=== PATIENT | female | born 1980 | race American Indian/Alaskan Native ===

== ENCOUNTER 2017-07-21 16:09 | Inpatient (IN) | payer SELFPAY ==
[2017-07-21 16:54] LABS: Basophils # (Auto) 0.1 K/mm3 (0.0-0.1); Eosinophils % (Auto) 0.1 % (0.0-4.3); Lymphocytes # (Auto) 2.8 K/mm3 (1.2-5.4); Lymphocytes % (Auto) 19.4 % (13.4-35.0); Mean Corpuscular HGB Conc 30 % (30-34); Monocytes # (Auto) 1.9 K/mm3 (0.0-0.8); Platelet Count 470 K/mm3 (140-440); Red Blood Count 5.49 M/mm3 (3.65-5.03)
[2017-07-21 17:01] LABS: Hematocrit 37.6 % (30.3-42.9); Hemoglobin 11.4 gm/dl (10.1-14.3)
[2017-07-21 17:02] LABS: Mean Corpuscular Hemoglobin 21 pg (28-32); Mean Corpuscular Volume 68 fl (79-97)
[2017-07-21 17:07] LABS: Calcium 9.5 mg/dL (8.4-10.2)
[2017-07-21] MEDS ORDERED: NACL 0.9% 1000 ML 1,000 ML IV ONE ×2 (18:29→20:32)
[2017-07-21] MEDS ORDERED: ATIVAN IV ONE (18:30)
--- NOTE | 2017-07-21 18:31 | Emergency Department Report ---
ED General Adult HPI - General Chief complaint: Psych Stated complaint: ANXIETY Time Seen by Provider: 07/21/17 18:14 Source: patient Mode of arrival: Wheelchair Limitations: No Limitations - History of Present Illness Initial comments: Patient states weak all over and dizzy spells for a couple days felt faint earlier today no seizure activity here for evaluation of nausea vomiting no black or bloody stool no hematemesis, does admit to frequent EtOH family states heavy, no history of withdrawal, does have a tremor, weak all over nausea vomiting, history of hypertension diabetes, no fever no headache no stiff neck chills, no shortness of breath no cough no chest pain, here for evaluation of nausea vomiting dizziness and generalized weakness and thinks she might have a panic attack earlier today no SI no HI alert and oriented 3 toxic in no acute distress -: days(s), This morning Radiation: non-radiation Consistency: intermittent Associated Symptoms: denies other symptoms, malaise, weakness. denies: confusion, chest pain, cough, diaphoresis, fever/chills, seizure - Related Data Home Medications Medication Instructions Recorded Confirmed Last Taken Insulin Glargine [Lantus] 20 unit SUB-Q QHS 02/19/16 02/19/16 02/16/16 20:00 Potassium Chloride 10 meq PO QDAY 02/19/16 02/19/16 02/16/16 09:00 Promethazine [Phenergan TAB] 25 mg PO Q6HR PRN 02/19/16 02/19/16 02/17/16 10:00 Previous Rx's Medication Instructions Recorded Last Taken Type Lisinopril [Zestril TAB] 10 mg PO QDAY #30 tablet 04/27/14 02/17/16 10:00 Rx Ondansetron [Zofran ODT TAB] 8 mg PO Q8HR #20 tab.rapdis 02/19/16 Unknown Rx Promethazine [Phenergan] 25 mg WA Q6HR PRN #10 supp.rect 02/19/16 Unknown Rx Sulfamethoxazole/Trimethoprim 1 each PO BID #6 tablet 02/19/16 Unknown Rx [Bactrim DS TAB] Allergies Allergy/AdvReac Type Severity Reaction Status Date / Time No Known Allergies Allergy Verified 02/19/16 08:35 ED Review of Systems ROS: Stated complaint: ANXIETY Other details as noted in HPI Comment: All other systems reviewed and negative Constitutional: malaise, weakness. denies: diaphoresis, fever Eyes: denies: eye discharge, vision change ENT: denies: dental pain, hearing loss, epistaxis Respiratory: denies: shortness of breath, SOB with exertion, SOB at rest, stridor Cardiovascular: syncope. denies: chest pain, palpitations, dyspnea on exertion , orthopnea, edema, paroxysmal nocturnal dyspnea Gastrointestinal: nausea. denies: abdominal pain, diarrhea, constipation, hematemesis, melena, hematochezia Genitourinary: denies: dysuria, hematuria, discharge Neurological: weakness, numbness, paresthesias. denies: headache ED Past Medical Hx - Past Medical History Hx Hypertension: Yes Hx Diabetes: Yes - Surgical History Past Surgical History?: No - Social History Smoking Status: Never Smoker Substance Use Type: None - Medications Home Medications: Home Medications Medication Instructions Recorded Confirmed Last Taken Type Lisinopril [Zestril TAB] 10 mg PO QDAY #30 tablet 04/27/14 02/19/16 02/17/16 10: 00 Rx Insulin Glargine [Lantus] 20 unit SUB-Q QHS 02/19/16 02/19/16 02/16/16 20:00 History Ondansetron [Zofran ODT TAB] 8 mg PO Q8HR #20 tab.rapdis 02/19/16 Unknown Rx Potassium Chloride 10 meq PO QDAY 02/19/16 02/19/16 02/16/16 09:00 History Promethazine [Phenergan TAB] 25 mg PO Q6HR PRN 02/19/16 02/19/16 02/17/16 10:00 History Promethazine [Phenergan] 25 mg WA Q6HR PRN #10 supp.rect 02/19/16 Unknown Rx Sulfamethoxazole/Trimethoprim 1 each PO BID #6 tablet 02/19/16 Unknown Rx [Bactrim DS TAB] ED Physical Exam - General Limitations: No Limitations General appearance: alert, anxious, other (tremor) - Head Head exam: Present: atraumatic, normocephalic - Eye Eye exam: Present: PERRL, EOMI - ENT ENT exam: Present: normal exam, normal orophraynx - Neck Neck exam: Present: normal inspection. Absent: tenderness, meningismus - Respiratory Respiratory exam: Present: normal lung sounds bilaterally. Absent: respiratory distress, wheezes, rales, rhonchi, stridor, accessory muscle use, decreased breath sounds, prolonged expiratory - Cardiovascular Cardiovascular Exam: Present: regular rate, normal rhythm, normal heart sounds. Absent: rubs, gallop - GI/Abdominal GI/Abdominal exam: Present: soft. Absent: distended, tenderness, guarding, rebound, rigid, mass, pulsatile mass - Extremities Exam Extremities exam: Present: normal inspection. Absent: pedal edema, joint swelling, calf tenderness - Back Exam Back exam: Present: normal inspection. Absent: tenderness, CVA tenderness (R), CVA tenderness (L), paraspinal tenderness, vertebral tenderness - Neurological Exam Neurological exam: Present: alert, oriented X3, CN II-XII intact, other (normal cerebellar findings). Absent: motor sensory deficit - Psychiatric Psychiatric exam: Present: anxious - Skin Skin exam: Present: other (poor skin turgor delayed capillary refill) ED Course Vital Signs 07/21/17 07/21/17 07/21/17 16:21 18:08 18:09 Temperature 98.7 F 98.1 F Pulse Rate 71 106 H Respiratory 16 19 18 Rate Blood Pressure 122/92 Blood Pressure 131/82 [Right] O2 Sat by Pulse 95 98 Oximetry 07/21/17 18:16 Temperature Pulse Rate 106 H Respiratory 16 Rate Blood Pressure 142/68 Blood Pressure [Right] O2 Sat by Pulse 98 Oximetry ED Medical Decision Making - Lab Data Result diagrams: 07/21/17 16:37 07/21/17 16:37 - EKG Data -: EKG Interpreted by Mn EKG shows normal: sinus rhythm - EKG Data Interpretation: other (ischemic change none acutge) - Radiology Data Radiology results: report reviewed - Medical Decision Making Patient with hyperglycemia anion gap is 17 with near syncope and possible ethanol withdrawal. She will need to be admitted for further evaluation of dizzy spells with near syncope she denies black or bloody stools she does have elevated anion gap with dehydration sodium 125 and elevated glucose case was discussed with hospitalist for further evaluation and possible ethanol withdrawal Critical care attestation.: If time is entered above; I have spent that time in minutes in the direct care of this critically ill patient, excluding procedure time. ED Disposition Clinical Impression: Volume depletion, Near syncope, Postural dizziness with near syncope Disposition: DC- OP ADMIT IP TO THIS HOSP Is pt being admited?: Yes Condition: Stable Referrals: DAVID LEE MD [Primary Care Provider] - 3-5 Days Time of Disposition: 22:17
[2017-07-21 18:32] LABS: Alanine Aminotransferase 21 units/L (7-56); Albumin 4.6 g/dL (3.9-5)
[2017-07-21 18:48] LABS: Bilirubin,Direct < 0.2 mg/dL (0-0.2)
--- NOTE | 2017-07-21 18:52 | XRay Report ---
FINAL REPORT PROCEDURE: XR CHEST ROUTINE 2V TECHNIQUE: PA and lateral chest radiographs were obtained. CPT 00729 HISTORY: weak COMPARISON: No prior studies are available for comparison. FINDINGS: Heart: Normal. Mediastinum/Vessels: Normal. Lungs/Pleural space: Normal. Bony thorax: No acute osseous abnormality. Other: IMPRESSION: Normal examination.
[2017-07-21 18:56] LABS: INR 0.94 (0.87-1.13); Partial Thromboplastin Time 24.3 Sec. (24.2-36.6)
[2017-07-21] MEDS ORDERED: VITAMIN B-1 100 MG in NACL 0.9% 50 ML IV ONE (19:00)
[2017-07-21] MEDS ORDERED: MAGNESIUM SULFATE 1 GM in NACL 0.9% 50 ML IV ONE (19:30)
--- NOTE | 2017-07-21 19:51 | Cat Scan Report ---
FINAL REPORT PROCEDURE: CT HEAD/BRAIN WO CON TECHNIQUE: Computerized tomography of the head was performed without contrast material. HISTORY: ams COMPARISON: No prior studies are available for comparison. FINDINGS: Skull and scalp: Normal. Paranasal sinuses: Mild opacification of the ethmoid sinuses. Ventricles and subarachnoid spaces: Normal. Cerebrum: No evidence of hemorrhage, acute infarction or mass . Cerebellum and brainstem: No evidence of hemorrhage, acute infarction or mass. Vasculature: Normal. Comments: None. IMPRESSION: There is no evidence of an acute intracranial process.
[2017-07-21] MEDS ORDERED: K-DUR PO ONE (20:33)
[2017-07-21] MEDS ORDERED: SODIUM CHLORIDE FLUSH SYRINGE 10 ML IV PRN (22:55)
[2017-07-21] MEDS ORDERED: D50W (25GM) Syringe IV PRN (22:55)
[2017-07-21] MEDS ORDERED: REGLAN IV PRN (22:55)
[2017-07-21] MEDS ORDERED: ZOFRAN IV PRN (22:55)
[2017-07-21] MEDS ORDERED: TYLENOL PO PRN (22:55)
[2017-07-21] MEDS ORDERED: MORPHINE IV PRN (22:55)
[2017-07-21] MEDS ORDERED: ROCEPHIN/NS 1 GM/50 ML 1 GM/50 ML BAG IV SCH (23:00)
--- NOTE | 2017-07-21 23:00 | History and Physical Report ---
History of Present Illness Date of examination: 07/21/17 History of present illness: 37-year-old man with a history of hypertension, diabetes, [facility] emergency room complains of nausea vomiting in multiple times over the last 10 days. She states she has not had anything to eat. She states she felt weak and today she almost passed out. States she is compliant with taking her medication for diabetes. On her way from work today, she states she had a panic attack Review of systems Constitutional: no weight loss, chills Ears, eyes, nose, mouth and throat: no nasal congestion, no nasal discharge, no sinus pressure, no vision change, no red eye. Neck: No neck pain or rigidity. Cardiovascular: no chest pain, palpitations Respiratory: No cough, shortness of breath Gastrointestinal: no abdominal pain, hematochezia Genitourinary : no dysuria, frequency , no hematuria Musculoskeletal: no joint swelling or muscle ache Integumentary: no rash, no pruritis Neurological: no parathesias, no numbness, no focal weakness Endocrine: no cold or heat intolerance, no polyuria or polydipsia Hematologic/Lymphatic: no easy bruising, no easy bleeding, no gland swelling Allergic/Immunologic: no urticaria, no angioedema. PAST MEDICAL HISTORY:hypertension, diabetes PAST SURGICAL HISTORY: None SOCIAL HISTORY: Denies alcohol, tobacco, drugs FAMILY HISTORY: Hypertension, diabetes Medications and Allergies Allergies Allergy/AdvReac Type Severity Reaction Status Date / Time No Known Allergies Allergy Verified 02/19/16 08:35 Home Medications Medication Instructions Recorded Confirmed Last Taken Type Lisinopril [Zestril TAB] 10 mg PO QDAY #30 tablet 04/27/14 02/19/16 02/17/16 10: 00 Rx Insulin Glargine [Lantus] 20 unit SUB-Q QHS 02/19/16 02/19/16 02/16/16 20:00 History Ondansetron [Zofran ODT TAB] 8 mg PO Q8HR #20 tab.rapdis 02/19/16 Unknown Rx Potassium Chloride 10 meq PO QDAY 02/19/16 02/19/16 02/16/16 09:00 History Promethazine [Phenergan TAB] 25 mg PO Q6HR PRN 02/19/16 02/19/16 02/17/16 10:00 History Promethazine [Phenergan] 25 mg NM Q6HR PRN #10 supp.rect 02/19/16 Unknown Rx Sulfamethoxazole/Trimethoprim 1 each PO BID #6 tablet 02/19/16 Unknown Rx [Bactrim DS TAB] Exam - Physical Exam Narrative exam: Gen. appearance: Patient lying in bed, no apparent distress HEENT: Normocephalic, atraumatic, pupils equally round and reactive to light, extraocular movement intact, and no sclericterus,. No JVD or thyromegaly or nodule,neck supple, no carotid bruit ,mucous membranes moist, no exudate or erythema Heart: S1, S2, regular rate and rhythm Lungs: Clear to auscultation bilaterally, breathing comfortable Abdomen: Positive bowel sounds, nontender, nondistended, no organomegaly Extremity: No edema, cyanosis, clubbing Skin: No rash, nodules, warm, dry Neuro: Oriented 3, cranial nerves II-12 intact, speech is fluent, motor and sensory intact - Constitutional Vitals: Temp Pulse Resp BP Pulse Ox 98.1 F 106 H 16 142/68 98 07/21/17 18:09 07/21/17 18:16 07/21/17 18:16 07/21/17 18:16 07/21/17 18:16 Results - Labs CBC & Chem 7: 07/21/17 16:37 07/21/17 16:37 Labs: Abnormal lab results 07/21/17 07/21/17 07/21/17 Range/Units 16:37 16:37 16:37 WBC (4.5-11.0) K/mm3 RBC (3.65-5.03) M/mm3 MCV (79-97) fl MCH (28-32) pg RDW (13.2-15.2) % Plt Count (140-440) K/mm3 [place] % (Auto) (0.0-7.3) % [place] # (0.0-0.8) K/mm3 Seg Neutrophils # (1.8-7.7) K/mm3 Sodium 125 L (137-145) mmol/L Potassium 3.3 L (3.6-5.0) mmol/L Chloride 74.6 L (98-107) mmol/L Carbon Dioxide 33 H (22-30) mmol/L BUN 25 H (7-17) mg/dL Creatinine 1.4 H (0.7-1.2) mg/dL Glucose 222 H (65-100) mg/dL Total Creatine Kinase (30-135) units/L Total Protein (6.3-8.2) g/dL Salicylates < 0.3 L (2.8-20.0) mg/dL Acetaminophen < 5.0 L (10.0-30.0) ug/mL 07/21/17 07/21/17 07/21/17 Range/Units 16:37 16:37 18:30 WBC 14.4 H (4.5-11.0) K/mm3 RBC 5.49 H (3.65-5.03) M/mm3 MCV 68 L (79-97) fl MCH 21 L (28-32) pg RDW 17.0 H (13.2-15.2) % Plt Count 470 H (140-440) K/mm3 [place] % (Auto) 13.0 H (0.0-7.3) % [place] # 1.9 H (0.0-0.8) K/mm3 Seg Neutrophils # 9.5 H (1.8-7.7) K/mm3 Sodium (137-145) mmol/L Potassium (3.6-5.0) mmol/L Chloride (98-107) mmol/L Carbon Dioxide (22-30) mmol/L BUN (7-17) mg/dL Creatinine (0.7-1.2) mg/dL Glucose (65-100) mg/dL Total Creatine Kinase 147 H (30-135) units/L Total Protein 8.4 H (6.3-8.2) g/dL Salicylates (2.8-20.0) mg/dL Acetaminophen (10.0-30.0) ug/mL - Imaging and Cardiology Chest x-ray: report reviewed CT Scan - head: report reviewed Assessment and Plan Assessment Acute renal failure Intractable nausea vomiting, may be related to gastroparesis Hyponatremia Near syncope secondasry to dehydration Leukocytosis, rule out infection Hypertension Diabetes type 2 Plan Admit to medicine Start IV fluid, monitor kidney function, hold lisinopril Start Antiemetics, cardiac enzymes, check urinalysis Give a dose of IV antibiotic, check fingersticks initiate insulin sliding scale DVT prophylaxis
[2017-07-21 23:23] LABS: Bacteria,Urine 3+ /HPF (Negative); Bilirubin,Urine NEG (Negative); Blood,Urine MOD (Negative); Color,Urine Yellow (Yellow); Mucus,Urine FEW /HPF; Urobilinogen,Urine < 2.0 mg/dL (<2.0)
[2017-07-21 23:44] LABS: Amphetamine Screen,Urine PRESUMPTIVE NEGATIVE; Benzodiazepines Screen,Urine PRESUMPTIVE NEGATIVE; Cannabinoid Screen,Urine PRESUMPTIVE NEGATIVE; Cocaine Screen,Urine PRESUMPTIVE NEGATIVE; Methadone Screen,Urine PRESUMPTIVE NEGATIVE; Opiate Screen,Urine PRESUMPTIVE NEGATIVE
[2017-07-21 23:48] LABS: Creatine Kinase MB 4.9 ng/mL (0.0-4.0)
[2017-07-22] MEDS ORDERED: NACL 0.9% 1000 ML 1,000 ML ONE (00:33)
[2017-07-22] MEDS: NACL 0.9% 1000 ML 1,000 ML IV SCH ×2 (01:41→22:00)
[2017-07-22] MEDS: cefTRIAXone 1 GM in NACL 0.9% 20 ML IV SCH ×2 (01:41→09:39)
[2017-07-22] MEDS: HumaLOG SUB-Q SCH ×4 (09:38→22:00)
[2017-07-22] MEDS: LOVENOX SUB-Q SCH (09:39)
[2017-07-22] MEDS: SODIUM CHLORIDE FLUSH SYRINGE 10 ML IV SCH ×2 (10:07→22:00)
[2017-07-22 13:17] LABS: Basophils # (Auto) 0.1 K/mm3 (0.0-0.1); Basophils % (Auto) 0.4 % (0.0-1.8); Eosinophils % (Auto) 0.4 % (0.0-4.3); Hemoglobin 10.3 gm/dl (10.1-14.3); Lymphocytes # (Auto) 2.8 K/mm3 (1.2-5.4); Lymphocytes % (Auto) 23.4 % (13.4-35.0); Mean Corpuscular HGB Conc 31 % (30-34); Monocytes # (Auto) 1.6 K/mm3 (0.0-0.8); Monocytes % (Auto) 13.1 % (0.0-7.3); Platelet Count 406 K/mm3 (140-440); Red Blood Count 4.83 M/mm3 (3.65-5.03)
[2017-07-22 13:24] LABS: BUN/Creatinine Ratio 18; Blood Urea Nitrogen 14 mg/dL (7-17); Calcium 8.6 mg/dL (8.4-10.2); Hemolysis Index 9
[2017-07-22 13:27] LABS: Mean Corpuscular Hemoglobin 21 pg (28-32); Mean Corpuscular Volume 68 fl (79-97)
[2017-07-22 13:36] LABS: Bacteria,Urine 1+ /HPF (Negative); Bilirubin,Urine NEG (Negative); Blood,Urine MOD (Negative); Color,Urine Yellow (Yellow); Protein,Urine <15 mg/dL mg/dL (Negative); Urobilinogen,Urine < 2.0 mg/dL (<2.0)
[2017-07-22 13:48] LABS: Creatine Kinase MB 4.4 ng/mL (0.0-4.0)
--- NOTE | 2017-07-22 15:14 | Progress Note ---
Assessment and Plan - Patient Problems (1) Gastroparesis Current Visit: Yes Status: Acute Plan to address problem: She most likely would gastroparesis. We will need to follow up outpatient with endocrinology. Patient does not have one on explained to her the importance of finding a primary care physician and endocrinology to better help both diagnosis. Appears to be secondary to uncontrolled diabetes. Patient is also had diabetes for approximately 10 years or greater. We'll consider treating with Zofran versus short trial of Reglan. Reglan should probably be done at outpatient physician office. (2) Postural dizziness with near syncope Current Visit: Yes Status: Acute Plan to address problem: Secondary to dehydration patient nausea vomiting for some time has been treated here before for this. Seems to be secondary to gastroparesis. Patient has been hydrated stable now able to eat breakfast and lunch. (3) Volume depletion Current Visit: Yes Status: Acute Plan to address problem: We'll continue IV volume hydration. Would discharge home in a.m. (4) Hypokalemia Current Visit: No Status: Acute Plan to address problem: Impaired to GI loss with the nausea vomiting diarrhea or replace as indicated. Replace by mouth potassium today. History Interval history: He should doing much better seem to respond to anti-anxiety benzodiazepine and meds for nausea antiemetic medications. After long discussion with history appears patient may have gastroparesis. Secondary to diabetes. Has been somewhat noncompliant with diabetes unsure of a hemoglobin A1c. Accu-Chek this morning 276 Hospitalist Physical - Constitutional Vitals: Temp Pulse Resp BP Pulse Ox 98.8 F 90 18 130/85 99 07/22/17 08:39 07/22/17 08:39 07/22/17 08:39 07/22/17 08:39 07/22/17 08:39 General appearance: Present: no acute distress - EENT Eyes: Present: PERRL, EOM intact. Absent: scleral icterus, conjunctival injection ENT: hearing intact, clear oral mucosa, hearing decreased, no oropharyngeal erythema, no poor dentition, no thrush - Neck Neck: Present: supple, normal ROM. Absent: enlarged thyroid, masses or JVD - Respiratory Respiratory: bilateral: CTA - Cardiovascular Rhythm: regular Heart Sounds: Present: S1 & S2 - Extremities Extremities: no ischemia, pulses intact, pulses symmetrical, normal color Peripheral Pulses: within normal limits - Abdominal General gastrointestinal: soft, non-tender, non-distended, normal bowel sounds - Integumentary Integumentary: Present: warm - Psychiatric Psychiatric: appropriate mood/affect, intact judgment & insight - Neurologic Neurologic: CNII-XII intact Results - Labs CBC & Chem 7: 07/22/17 11:24 07/22/17 11:24 Labs: Laboratory Last Values WBC 12.1 K/mm3 (4.5-11.0) H 07/22/17 11:24 RBC 4.83 M/mm3 (3.65-5.03) 07/22/17 11:24 Hgb 10.3 gm/dl (10.1-14.3) 07/22/17 11:24 Hct 33.0 % (30.3-42.9) 07/22/17 11:24 MCV 68 fl (79-97) L 07/22/17 11:24 MCH 21 pg (28-32) L 07/22/17 11:24 MCHC 31 % (30-34) 07/22/17 11:24 RDW 17.0 % (13.2-15.2) H 07/22/17 11:24 Plt Count 406 K/mm3 (140-440) 07/22/17 11:24 Lymph % (Auto) 23.4 % (13.4-35.0) 07/22/17 11:24 [place] % (Auto) 13.1 % (0.0-7.3) H 07/22/17 11:24 Eos % (Auto) 0.4 % (0.0-4.3) 07/22/17 11:24 Baso % (Auto) 0.4 % (0.0-1.8) 07/22/17 11:24 Lymph # 2.8 K/mm3 (1.2-5.4) 07/22/17 11:24 [place] # 1.6 K/mm3 (0.0-0.8) H 07/22/17 11:24 Eos # 0.0 K/mm3 (0.0-0.4) 07/22/17 11:24 Baso # 0.1 K/mm3 (0.0-0.1) 07/22/17 11:24 Seg Neutrophils % 62.7 % (40.0-70.0) 07/22/17 11:24 Seg Neutrophils # 7.6 K/mm3 (1.8-7.7) 07/22/17 11:24 PT 13.0 Sec. (12.2-14.9) 07/21/17 18:37 INR 0.94 (0.87-1.13) 07/21/17 18:37 APTT 24.3 Sec. (24.2-36.6) 07/21/17 18:37 D-Dimer 150.15 ng/mlDDU (0-234) 07/21/17 23:06 Sodium 130 mmol/L (137-145) L 07/22/17 11:24 Potassium 3.0 mmol/L (3.6-5.0) L 07/22/17 11:24 Chloride 85.3 mmol/L (98-107) L 07/22/17 11:24 Carbon Dioxide 30 mmol/L (22-30) 07/22/17 11:24 Anion Gap 18 mmol/L 07/22/17 11:24 BUN 14 mg/dL (7-17) 07/22/17 11:24 Creatinine 0.8 mg/dL (0.7-1.2) 07/22/17 11:24 Estimated GFR > 60 ml/min 07/22/17 11:24 BUN/Creatinine Ratio 18 % 07/22/17 11:24 Glucose 160 mg/dL (65-100) H 07/22/17 11:24 POC Glucose 196 (70-105) H 07/22/17 07:32 Calcium 8.6 mg/dL (8.4-10.2) 07/22/17 11:24 Total Bilirubin 0.70 mg/dL (0.1-1.2) 07/21/17 16:37 Direct Bilirubin < 0.2 mg/dL (0-0.2) 07/21/17 16:37 Indirect Bilirubin 0.5 mg/dL 07/21/17 16:37 AST 23 units/L (5-40) 07/21/17 16:37 ALT 21 units/L (7-56) 07/21/17 16:37 Alkaline Phosphatase 77 units/L (35-129) 07/21/17 16:37 Total Creatine Kinase 144 units/L (30-135) H 07/22/17 11:24 CK-MB (CK-2) 4.4 ng/mL (0.0-4.0) H 07/22/17 11:24 CK-MB (CK-2) Rel Index 3.0 (0-4) 07/22/17 11:24 Troponin T < 0.010 ng/mL (0.00-0.029) 07/22/17 11:24 Total Protein 8.4 g/dL (6.3-8.2) H 07/21/17 16:37 Albumin 4.6 g/dL (3.9-5) 07/21/17 16:37 Albumin/Globulin Ratio 1.2 % 07/21/17 16:37 Urine Color Yellow (Yellow) 07/22/17 13:00 Urine Turbidity Clear (Clear) 07/22/17 13:00 Urine pH 7.0 (5.0-7.0) 07/22/17 13:00 Ur Specific [place] 1.009 (1.003-1.030) 07/22/17 13:00 Urine Protein <15 mg/dl mg/dL (Negative) 07/22/17 13:00 Urine Glucose (UA) Neg mg/dL (Negative) 07/22/17 13:00 Urine Ketones Neg mg/dL (Negative) 07/22/17 13:00 Urine Blood Mod (Negative) 07/22/17 13:00 Urine Nitrite Neg (Negative) 07/22/17 13:00 Urine Bilirubin Neg (Negative) 07/22/17 13:00 Urine Urobilinogen < 2.0 mg/dL (<2.0) 07/22/17 13:00 Ur Leukocyte Esterase Tr (Negative) 07/22/17 13:00 Urine WBC (Auto) 3.0 /HPF (0.0-6.0) 07/22/17 13:00 Urine RBC (Auto) 2.0 /HPF (0.0-6.0) 07/22/17 13:00 U Epithel Cells (Auto) 6.0 /HPF (0-13.0) 07/22/17 13:00 Urine Bacteria (Auto) 1+ /HPF (Negative) 07/22/17 13:00 Urine Mucus Few /HPF 07/21/17 23:08 Salicylates < 0.3 mg/dL (2.8-20.0) L 07/21/17 16:37 Urine Opiates Screen Presumptive negative 07/21/17 23:08 Urine Methadone Screen Presumptive negative 07/21/17 23:08 Acetaminophen < 5.0 ug/mL (10.0-30.0) L 07/21/17 16:37 Ur Barbiturates Screen Presumptive negative 07/21/17 23:08 Ur Phencyclidine Scrn Presumptive negative 07/21/17 23:08 Ur Amphetamines Screen Presumptive negative 07/21/17 23:08 U Benzodiazepines Scrn Presumptive negative 07/21/17 23:08 Urine Cocaine Screen Presumptive negative 07/21/17 23:08 U Marijuana (THC) Screen Presumptive negative 07/21/17 23:08 Drugs of Abuse Note Disclamer 07/21/17 23:08 Plasma/Serum Alcohol < 0.01 % (0-0.07) 07/21/17 16:37
[2017-07-22] MEDS ORDERED: K-DUR PO ONE ×2 (15:15→18:00)
[2017-07-23 07:09] LABS: Basophils % (Auto) 0.6 % (0.0-1.8); Eosinophils # (Auto) 0.1 K/mm3 (0.0-0.4); Eosinophils % (Auto) 1.6 % (0.0-4.3); Hematocrit 28.1 % (30.3-42.9); Hemoglobin 8.9 gm/dl (10.1-14.3); Lymphocytes # (Auto) 1.8 K/mm3 (1.2-5.4); Lymphocytes % (Auto) 28.5 % (13.4-35.0); Mean Corpuscular HGB Conc 32 % (30-34); Monocytes % (Auto) 15.4 % (0.0-7.3); Platelet Count 306 K/mm3 (140-440); Red Blood Count 4.02 M/mm3 (3.65-5.03); Red Cell Distribution Width 17.6 % (13.2-15.2)
[2017-07-23 07:11] LABS: Mean Corpuscular Hemoglobin 22 pg (28-32); Mean Corpuscular Volume 70 fl (79-97)
[2017-07-23 07:27] LABS: BUN/Creatinine Ratio 15; Blood Urea Nitrogen 12 mg/dL (7-17); Hemolysis Index 1
[2017-07-23] MEDS: HumaLOG SUB-Q SCH (08:30)
[2017-07-23] MEDS: LOVENOX SUB-Q SCH (10:30)
[2017-07-23] MEDS ORDERED: K-DUR PO NR (10:30)
[2017-07-23] MEDS: cefTRIAXone 1 GM in NACL 0.9% 20 ML IV SCH (10:30)
--- NOTE | 2017-07-23 12:02 | Discharge Summary ---
Providers - Providers Date of Admission: 07/21/17 22:55 Attending physician: CHADWICK SZYMANSKI MD Primary care physician: DAVID LEE Hospitalization Reason for admission: gastroparesis Condition: Stable Hospital course: 37-year-old man with a history of hypertension, diabetes, [facility] emergency room complains of nausea vomiting in multiple times over the last 10 days. She states she has not had anything to eat. She states she felt weak and today she almost passed out. States she is compliant with taking her medication for diabetes. On her way from work today, she states she had a panic attack. While in the hospital was determined that this could be gastroparesis secondary to poorly controlled diabetes mellitus. The patient improved with initiation of Zofran on initial trial of Reglan. Recommendation was made to follow up outpatient for Reglan initiation of studies. Also follow-up with clinical psychologist private practice. Patient received extensive advice counseling about compliance with diabetic medication she verbalized understanding. Her postural dizziness resolved. She is clinically stable at this time for discharge she was noted to have anemia this was discussed with her although she denied any melanotic stools she did report that she just completed her menstrual cycle I did recommend iron pills also reevaluation by GI outpatient if anemia persists (1) Gastroparesis (2) Postural dizziness with near syncope (3) Volume depletion (4) Hypokalemia (5) Diabetes Mellitus with hyperglycemia Disposition: DC-01 TO HOME OR SELFCARE Time spent for discharge: 35 mins Core Measure Documentation - Palliative Care Palliative Care/ Comfort Measures: Not Applicable - Core Measures Any of the following diagnoses?: none - VTE Discharge Requirements Deep Vein Thrombosis/Pulmonary Embolism Present on Admission: No Exam - Constitutional Vitals: Temp Pulse Resp BP Pulse Ox 97.9 F 85 18 129/86 100 07/23/17 09:12 07/23/17 09:12 07/23/17 09:12 07/23/17 09:12 07/23/17 09:12 General appearance: Present: no acute distress, well-nourished - EENT Eyes: Present: PERRL, EOM intact. Absent: scleral icterus, conjunctival injection ENT: clear oral mucosa - Neck Neck: Present: supple, normal ROM - Respiratory Respiratory effort: normal Respiratory: bilateral: CTA - Cardiovascular Rhythm: regular Heart Sounds: Present: S1 & S2. Absent: systolic murmur, diastolic murmur - Extremities Extremities: no ischemia, pulses intact, pulses symmetrical, No edema, normal temperature, normal color, Full ROM Peripheral Pulses: within normal limits - Abdominal General gastrointestinal: Present: soft, non-tender, non-distended, normal bowel sounds - Integumentary Integumentary: Present: clear, warm, dry - Musculoskeletal Musculoskeletal: strength equal bilaterally - Psychiatric Psychiatric: appropriate mood/affect, intact judgment & insight, memory intact, cooperative - Neurologic Neurologic: CNII-XII intact, moves all extremities - Allied Health Allied health notes reviewed: nursing Plan Activity: advance as tolerated, fall precautions Diet: diabetic Special Instructions: smoking cessation Follow up with: DAVID LEE MD [Primary Care Provider] - 3-5 Days MELYSSA MUNOZ MD [Staff Physician] - 7 Days Forms: Work/School Release Form Prescriptions: Ferrous Sulfate [Iron] 325 mg PO TID #30 tablet Lisinopril [Zestril TAB] 10 mg PO QDAY #30 tablet Omeprazole 20 mg PO DAILY #30 capsule.
[2017-07-23 13:00] VITALS: BP 127/81
== END 2017-07-23 16:34 | disposition home or self-care (01) | DRG 74 ==
LOC: ED 16:09 → 4A 22:55
PROVIDERS: ADMIT Internal Medicine; ATTEND Internal Medicine
DX: E11.43 Type 2 diabetes mellitus with diabetic autonomic (poly)neuropathy (principal); N17.9 Acute kidney failure, unspecified; E87.1 Hypo-osmolality and hyponatremia; R55 Syncope and collapse; E86.9 Volume depletion, unspecified; I10 Essential (primary) hypertension; E86.0 Dehydration; D72.829 Elevated white blood cell count, unspecified; E87.6 Hypokalemia; K31.84 Gastroparesis; E11.65 Type 2 diabetes mellitus with hyperglycemia; Z79.4 Long term (current) use of insulin; Z79.899 Other long term (current) drug therapy; Z82.49 Family history of ischemic heart disease and other diseases of the circulatory system; Z83.3 Family history of diabetes mellitus
CPT/HCPCS: 36415; 70450; 71046; 80048; 80074; 80307; 80320; 81001; 82550; 82553; 82962; 84484; 85025; 85379; 85610; 85730; 93005; 93010; 96361; 96365; 96368; 96375; G0480; J0696; J1650; J1815; J2060; J3411; J3475; J7030

== ENCOUNTER 2017-08-29 08:32 | Emergency (ER) | payer SELFPAY ==
[2017-08-29 09:46] LABS: Basophils # (Auto) 0.1 K/mm3 (0.0-0.1); Hematocrit 36.1 % (30.3-42.9); Hemoglobin 11.7 gm/dl (10.1-14.3); Lymphocytes # (Auto) 1.9 K/mm3 (1.2-5.4); Lymphocytes % (Auto) 15.1 % (13.4-35.0); Mean Corpuscular HGB Conc 32 % (30-34); Monocytes # (Auto) 1.2 K/mm3 (0.0-0.8); Monocytes % (Auto) 9.7 % (0.0-7.3); Platelet Count 546 K/mm3 (140-440); Red Blood Count 5.35 M/mm3 (3.65-5.03); Red Cell Distribution Width 17.8 % (13.2-15.2)
[2017-08-29 09:49] LABS: Mean Corpuscular Hemoglobin 22 pg (28-32); Mean Corpuscular Volume 67 fl (79-97)
[2017-08-29 09:49] LABS: BUN/Creatinine Ratio 19; Blood Urea Nitrogen 21 mg/dL (7-17); Calcium 9.7 mg/dL (8.4-10.2); Hemolysis Index 3
[2017-08-29] MEDS ORDERED: ZOFRAN IV ONE (10:32)
[2017-08-29] MEDS ORDERED: NACL 0.9% 1000 ML 1,000 ML IV ONE (10:32)
--- NOTE | 2017-08-29 10:37 | Emergency Department Report ---
ED General Adult HPI - General Chief complaint: Chest Pain Stated complaint: CP/SOB/VOMITING Time Seen by Provider: 08/29/17 10:28 Source: patient Mode of arrival: Ambulatory Limitations: No Limitations - History of Present Illness Initial comments: Patient is 37 years old female history of diabetes and hypertension. Patient presented to the ER complaining all chest pain central, tightness associated with shortness of breath, nausea and vomiting. Patient stated that she is unable to keep anything down. She denied any fever or cough recently. Patient is also complaining all abdominal pain diffuse does not radiate. - Related Data Home Medications Medication Instructions Recorded Confirmed Last Taken Insulin Glargine [Lantus VIAL] 20 unit SUB-Q QHS 02/19/16 07/22/17 02/16/16 20: 00 Potassium Chloride 10 meq PO QDAY 02/19/16 07/22/17 02/16/16 09:00 Promethazine [Phenergan TAB] 25 mg PO Q6HR PRN 02/19/16 07/22/17 02/17/16 10:00 Previous Rx's Medication Instructions Recorded Last Taken Type Ondansetron [Zofran ODT TAB] 8 mg PO Q8HR #20 tab.rapdis 02/19/16 Unknown Rx Promethazine [Phenergan SUPPOS] 25 mg FL Q6HR PRN #10 supp.rect 02/19/16 Unknown Rx Ferrous Sulfate [Iron] 325 mg PO TID #30 tablet 07/23/17 Unknown Rx Lisinopril [Zestril TAB] 10 mg PO QDAY #30 tablet 07/23/17 Unknown Rx Omeprazole 20 mg PO DAILY #30 capsule. 07/23/17 Unknown Rx Allergies Allergy/AdvReac Type Severity Reaction Status Date / Time No Known Allergies Allergy Verified 02/19/16 08:35 ED Review of Systems ROS: Stated complaint: CP/SOB/VOMITING Other details as noted in HPI Comment: All other systems reviewed and negative Constitutional: denies: chills, fever Respiratory: shortness of breath Cardiovascular: chest pain, palpitations Gastrointestinal: abdominal pain, nausea, vomiting. denies: diarrhea, constipation, hematemesis, melena, hematochezia Musculoskeletal: denies: back pain, joint swelling Neurological: denies: headache, weakness, numbness, paresthesias ED Past Medical Hx - Past Medical History Previous Medical History?: Yes Hx Hypertension: Yes Hx Diabetes: Yes - Surgical History Past Surgical History?: Yes Additional Surgical History: x 1 - Social History Smoking Status: Never Smoker Substance Use Type: Alcohol, Prescribed - Medications Home Medications: Home Medications Medication Instructions Recorded Confirmed Last Taken Type Insulin Glargine [Lantus VIAL] 20 unit SUB-Q QHS 02/19/16 07/22/17 02/16/16 20: 00 History Ondansetron [Zofran ODT TAB] 8 mg PO Q8HR #20 tab.rapdis 02/19/16 07/22/17 Unknown Rx Potassium Chloride 10 meq PO QDAY 02/19/16 07/22/17 02/16/16 09:00 History Promethazine [Phenergan SUPPOS] 25 mg FL Q6HR PRN #10 supp.rect 02/19/16 Unknown Rx Promethazine [Phenergan TAB] 25 mg PO Q6HR PRN 02/19/16 07/22/17 02/17/16 10:00 History Ferrous Sulfate [Iron] 325 mg PO TID #30 tablet 07/23/17 Unknown Rx Lisinopril [Zestril TAB] 10 mg PO QDAY #30 tablet 07/23/17 Unknown Rx Omeprazole 20 mg PO DAILY #30 capsule. 07/23/17 Unknown Rx ED Physical Exam - General Limitations: No Limitations General appearance: alert, in no apparent distress - Head Head exam: Present: atraumatic, normocephalic, normal inspection - Eye Eye exam: Present: normal appearance - ENT ENT exam: Present: mucous membranes dry - Neck Neck exam: Present: normal inspection, full ROM. Absent: tenderness, meningismus, lymphadenopathy, thyromegaly - Respiratory Respiratory exam: Present: normal lung sounds bilaterally. Absent: respiratory distress, wheezes, rales, rhonchi, stridor, chest wall tenderness, accessory muscle use, decreased breath sounds, prolonged expiratory - Cardiovascular Cardiovascular Exam: Present: tachycardia - GI/Abdominal GI/Abdominal exam: Present: soft, normal bowel sounds. Absent: distended, tenderness, guarding, rebound, rigid, organomegaly, mass, bruit, pulsatile mass , hernia - Extremities Exam Extremities exam: Present: normal inspection, full ROM, normal capillary refill - Back Exam Back exam: Present: normal inspection, full ROM. Absent: tenderness, CVA tenderness (R), CVA tenderness (L), muscle spasm, paraspinal tenderness, vertebral tenderness, rash noted - Neurological Exam Neurological exam: Present: alert, oriented X3, CN II-XII intact, normal gait, reflexes normal - Skin Skin exam: Present: warm, intact, normal color ED Course Vital Signs 08/29/17 08/29/17 09:00 10:53 Temperature 98.6 F Pulse Rate 105 H Respiratory 20 16 Rate Blood Pressure 136/101 O2 Sat by Pulse 97 Oximetry - Reevaluation(s) Reevaluation #1: 08/29/17 13:53 Patient stated that she is feeling much better. No more nausea or vomiting. I advised patient to PRIMARY CARE PHYSICIAN IN THE NEXT 2-3 DAYS. I ALSO INFORMED HER TO RETURN TO THE ER IF HER SYMPTOMS ARE NOT IMPROVING. ED Medical Decision Making - Lab Data Result diagrams: 08/29/17 09:16 08/29/17 09:19 Critical care attestation.: If time is entered above; I have spent that time in minutes in the direct care of this critically ill patient, excluding procedure time. ED Disposition Clinical Impression: Volume depletion, Gastroparesis Disposition: DC-01 TO HOME OR SELFCARE Is pt being admited?: No Condition: Stable Instructions: Acute Nausea and Vomiting (ED) Referrals: PRIMARY CARE,MD [Primary Care Provider] - 3-5 Days
[2017-08-29 12:50] LABS: Bilirubin,Urine NEG (Negative); Blood,Urine MOD (Negative); Color,Urine Yellow (Yellow); Hyaline Casts,Urine 1 /LPF; Mucus,Urine 2+ /HPF
--- NOTE | 2017-08-29 12:58 | XRay Report ---
ROUTINE CHEST, TWO VIEWS: HISTORY: Shortness of breath. The trachea, heart, mediastinal contour, lung [place] and bony thorax are unremarkable. IMPRESSION: Unremarkable chest x-ray.
[2017-08-29 14:20] VITALS: BP 154/107
== END 2017-08-29 14:20 | disposition home or self-care (01) ==
LOC: ED 08:32
DX: E86.9 Volume depletion, unspecified (principal); E11.43 Type 2 diabetes mellitus with diabetic autonomic (poly)neuropathy; K31.84 Gastroparesis; I10 Essential (primary) hypertension; Z79.4 Long term (current) use of insulin
CPT/HCPCS: 36415; 71046; 80048; 81001; 82962; 83690; 84484; 84703; 85025; 85379; 93005; 93010; 96361; 96374; 99284; J2405; J7030

== ENCOUNTER 2017-12-19 09:14 | Emergency (ER) | payer SELFPAY ==
[2017-12-19 09:58] LABS: Basophils # (Auto) 0.1 K/mm3 (0.0-0.1); Eosinophils % (Auto) 0.4 % (0.0-4.3); Hematocrit 38.3 % (30.3-42.9); Hemoglobin 12.3 gm/dl (10.1-14.3); Lymphocytes # (Auto) 1.9 K/mm3 (1.2-5.4); Lymphocytes % (Auto) 19.9 % (13.4-35.0); Mean Corpuscular HGB Conc 32 % (30-34); Monocytes # (Auto) 1.3 K/mm3 (0.0-0.8); Monocytes % (Auto) 13.9 % (0.0-7.3); Platelet Count 438 K/mm3 (140-440); Red Blood Count 5.68 M/mm3 (3.65-5.03); Red Cell Distribution Width 17.5 % (13.2-15.2)
[2017-12-19 10:02] LABS: Mean Corpuscular Hemoglobin 22 pg (28-32); Mean Corpuscular Volume 68 fl (79-97)
[2017-12-19 10:12] LABS: BUN/Creatinine Ratio 15; Blood Urea Nitrogen 16 mg/dL (7-17); Hemolysis Index 13
[2017-12-19] MEDS ORDERED: ZOFRAN IV ONE (11:32)
[2017-12-19] MEDS ORDERED: K-DUR PO ONE (11:33)
[2017-12-19] MEDS ORDERED: NACL 0.9% 1000 ML 1,000 ML IV ONE ×3 (11:35→17:30)
[2017-12-19 12:22] LABS: INR 0.95 (0.87-1.13)
[2017-12-19 12:23] LABS: Partial Thromboplastin Time 24.6 Sec. (24.2-36.6)
--- NOTE | 2017-12-19 12:26 | Emergency Department Report ---
ED General Adult HPI - General Chief complaint: Nausea/Vomiting/Diarrhea Stated complaint: VOMIT/CHEST PAIN/SOB Time Seen by Provider: 12/19/17 11:33 Source: patient Mode of arrival: Ambulatory Limitations: No Limitations - History of Present Illness Initial comments: 37-year-old female complains of vomiting for one week. She has a history of gastroparesis. She states that she is not regularly checking her sugar but *Last night. She states she took 20 units of regular insulin last night. She states that she has been unable to eat. She does not describe polyuria polydipsia or polyphagia. She denies fever or chills. He is not complaining of any acute abdominal pain but has had abdominal discomfort intermittently. She denies any cough or respiratory symptoms. She does complain of generalized weakness. She has not presyncopal or disoriented however. He said no focal neurological change. Her presentation seems very similar to her last admission. According to her previous discharge summary: Hospitalization Reason for admission: gastroparesis Condition: Stable Hospital course: 37-year-old man with a history of hypertension, diabetes, seem emergency room complains of nausea vomiting in multiple times over the last 10 days. She states she has not had anything to eat. She states she felt weak and today she almost passed out. States she is compliant with taking her medication for diabetes. On her way from work today, she states she had a panic attack. While in the hospital was determined that this could be gastroparesis secondary to poorly controlled diabetes mellitus. The patient improved with initiation of Zofran on initial trial of Reglan. Recommendation was made to follow up outpatient for Reglan initiation of studies. Also follow-up with limousine rental clerk. Patient received extensive advice counseling about compliance with diabetic medication she verbalized understanding. Her postural dizziness resolved. She is clinically stable at this time for discharge she was noted to have anemia this was discussed with her although she denied any melanotic stools she did report that she just completed her menstrual cycle I did recommend iron pills also reevaluation by GI outpatient if anemia persists (1) Gastroparesis (2) Postural dizziness with near syncope (3) Volume depletion (4) Hypokalemia (5) Diabetes Mellitus with hyperglycemia -: Gradual, week(s) Location: abdomen Severity scale (0 -10): 0 Quality: aching Consistency: intermittent Improves with: none Worsens with: none Associated Symptoms: nausea/vomiting Treatments Prior to Arrival: other (insulin last night) - Related Data Home Medications Medication Instructions Recorded Confirmed Last Taken Insulin Glargine [Lantus VIAL] 20 unit SUB-Q QHS 02/19/16 07/22/17 02/16/16 20: 00 Potassium Chloride 10 meq PO QDAY 02/19/16 07/22/17 02/16/16 09:00 Promethazine [Phenergan TAB] 25 mg PO Q6HR PRN 02/19/16 07/22/17 02/17/16 10:00 Previous Rx's Medication Instructions Recorded Last Taken Type Ondansetron [Zofran ODT TAB] 8 mg PO Q8HR #20 tab.rapdis 02/19/16 Unknown Rx Promethazine [Phenergan SUPPOS] 25 mg NE Q6HR PRN #10 supp.rect 02/19/16 Unknown Rx Ferrous Sulfate [Iron] 325 mg PO TID #30 tablet 07/23/17 Unknown Rx Lisinopril [Zestril TAB] 10 mg PO QDAY #30 tablet 07/23/17 Unknown Rx Omeprazole 20 mg PO DAILY #30 capsule. 07/23/17 Unknown Rx Ondansetron [Zofran Odt] 4 mg PO Q8HR PRN #14 tab.rapdis 08/29/17 Unknown Rx Allergies Allergy/AdvReac Type Severity Reaction Status Date / Time No Known Allergies Allergy Verified 02/19/16 08:35 ED Review of Systems ROS: Stated complaint: VOMIT/CHEST PAIN/SOB Other details as noted in HPI Constitutional: weakness. denies: chills, fever Eyes: denies: eye pain, eye discharge, vision change ENT: denies: ear pain, throat pain Respiratory: denies: cough, shortness of breath, wheezing Cardiovascular: denies: chest pain, palpitations Endocrine: no symptoms reported Gastrointestinal: abdominal pain, nausea, vomiting. denies: diarrhea Genitourinary: denies: urgency, dysuria, discharge Musculoskeletal: denies: back pain, joint swelling, arthralgia Skin: denies: rash, lesions Neurological: denies: headache, weakness, paresthesias Psychiatric: denies: anxiety, depression Hematological/Lymphatic: denies: easy bleeding, easy bruising ED Past Medical Hx - Past Medical History Hx Hypertension: Yes Hx Diabetes: Yes Additional medical history: Gastroparesis, insulin-dependent diabetes - Surgical History Additional Surgical History: x 1 - Social History Smoking Status: Never Smoker Substance Use Type: Alcohol, Prescribed - Medications Home Medications: Home Medications Medication Instructions Recorded Confirmed Last Taken Type Insulin Glargine [Lantus VIAL] 20 unit SUB-Q QHS 02/19/16 07/22/17 02/16/16 20: 00 History Ondansetron [Zofran ODT TAB] 8 mg PO Q8HR #20 tab.rapdis 02/19/16 07/22/17 Unknown Rx Potassium Chloride 10 meq PO QDAY 02/19/16 07/22/17 02/16/16 09:00 History Promethazine [Phenergan SUPPOS] 25 mg NE Q6HR PRN #10 supp.rect 02/19/16 Unknown Rx Promethazine [Phenergan TAB] 25 mg PO Q6HR PRN 02/19/16 07/22/17 02/17/16 10:00 History Ferrous Sulfate [Iron] 325 mg PO TID #30 tablet 07/23/17 Unknown Rx Lisinopril [Zestril TAB] 10 mg PO QDAY #30 tablet 07/23/17 Unknown Rx Omeprazole 20 mg PO DAILY #30 capsule. 07/23/17 Unknown Rx Ondansetron [Zofran Odt] 4 mg PO Q8HR PRN #14 tab.rapdis 08/29/17 Unknown Rx ED Physical Exam - General Limitations: No Limitations General appearance: alert, in no apparent distress - Head Head exam: Present: atraumatic, normocephalic - Eye Eye exam: Present: normal appearance, PERRL, EOMI. Absent: scleral icterus - ENT ENT exam: Present: mucous membranes moist - Neck Neck exam: Present: normal inspection. Absent: tenderness, meningismus - Respiratory Respiratory exam: Present: normal lung sounds bilaterally. Absent: respiratory distress - Cardiovascular Cardiovascular Exam: Present: regular rate, normal rhythm. Absent: systolic murmur, diastolic murmur, rubs, gallop - GI/Abdominal GI/Abdominal exam: Present: soft, normal bowel sounds. Absent: distended, tenderness, guarding, rebound, rigid, organomegaly, mass, bruit, pulsatile mass - Extremities Exam Extremities exam: Present: normal inspection - Back Exam Back exam: Present: normal inspection - Neurological Exam Neurological exam: Present: alert, oriented X3, CN II-XII intact. Absent: motor sensory deficit - Psychiatric Psychiatric exam: Present: normal affect, normal mood - Skin Skin exam: Present: warm, dry, intact, normal color. Absent: rash ED Course Vital Signs 12/19/17 12/19/17 12/19/17 09:43 12:01 12:02 Temperature 99.1 F 98.1 F Pulse Rate 120 H 117 H Respiratory 18 15 15 Rate Blood Pressure 131/83 Blood Pressure 117/97 [Left] O2 Sat by Pulse 99 100 100 Oximetry - Reevaluation(s) Reevaluation #1: Initial repletion of the patient's volume status, sodium, chloride, potassium has begun. We will hold off on any insulin as she would drive her potassium down lower. She is tolerated 40 potassium by mouth already. She was not hypomagnesemic. She was not in DKA. A venous blood gas showed a pH of 7.49. She is referred to Dr. Rivera for further care and management. 12/19/17 12:34 12/19/17 12:34 Reevaluation #2: K riders and normal saline have been ordered. 12/19/17 12:37 Reevaluation #3: Evaluation of the patient's metabolic acidosis is pending. So for this no evidence of lactic acidosis or DKA. The patient's pH is compensated. I will order a repeat BMP for a few hours from now. 12/19/17 12:38 ED Medical Decision Making - Lab Data Result diagrams: 12/19/17 09:48 12/19/17 09:48 Laboratory Results - last 24 hr 12/19/17 12/19/17 12/19/17 09:48 09:48 10:02 WBC 9.5 RBC 5.68 H Hgb 12.3 Hct 38.3 MCV 68 L MCH 22 L MCHC 32 RDW 17.5 H Plt Count 438 Lymph % (Auto) 19.9 [place] % (Auto) 13.9 H Eos % (Auto) 0.4 Baso % (Auto) 1.0 Lymph # 1.9 Bradley # 1.3 H Eos # 0.0 Baso # 0.1 Seg Neutrophils % 64.8 Seg Neutrophils # 6.1 PT INR APTT POC ABG pH POC ABG pCO2 POC ABG pO2 POC ABG HCO3 POC ABG Total CO2 POC ABG O2 Sat POC ABG Base Excess VBG pH Sodium 120 L Potassium 2.7 L* Chloride 67.8 L Carbon Dioxide 25 Anion Gap 30 BUN 16 Creatinine 1.1 Estimated GFR > 60 BUN/Creatinine Ratio 15 Glucose 403 H POC Glucose 337 H Calcium 10.0 Troponin T < 0.010 12/19/17 12/19/17 12/19/17 11:44 11:50 11:52 WBC RBC Hgb Hct MCV MCH MCHC RDW Plt Count Lymph % (Auto) [place] % (Auto) Eos % (Auto) Baso % (Auto) Lymph # [place] # Eos # Baso # Seg Neutrophils % Seg Neutrophils # PT 13.2 INR 0.95 APTT 24.6 POC ABG pH 7.492 H POC ABG pCO2 43.1 POC ABG pO2 32 L POC ABG HCO3 33.0 POC ABG Total CO2 34 POC ABG O2 Sat 66 POC ABG Base Excess 10 VBG pH 7.458 H Sodium Potassium Chloride Carbon Dioxide Anion Gap BUN Creatinine Estimated GFR BUN/Creatinine Ratio Glucose POC Glucose Calcium Troponin T Laboratory Results - last 24 hr 12/19/17 12/19/17 12/19/17 09:48 09:48 10:02 WBC 9.5 RBC 5.68 H Hgb 12.3 Hct 38.3 MCV 68 L MCH 22 L MCHC 32 RDW 17.5 H Plt Count 438 Lymph % (Auto) 19.9 [place] % (Auto) 13.9 H Eos % (Auto) 0.4 Baso % (Auto) 1.0 Lymph # 1.9 Bradley # 1.3 H Eos # 0.0 Baso # 0.1 Seg Neutrophils % 64.8 Seg Neutrophils # 6.1 PT INR APTT POC ABG pH POC ABG pCO2 POC ABG pO2 POC ABG HCO3 POC ABG Total CO2 POC ABG O2 Sat POC ABG Base Excess VBG pH Sodium 120 L Potassium 2.7 L* Chloride 67.8 L Carbon Dioxide 25 Anion Gap 30 BUN 16 Creatinine 1.1 Estimated GFR > 60 BUN/Creatinine Ratio 15 Glucose 403 H POC Glucose 337 H Lactic Acid Calcium 10.0 CK-MB (CK-2) Troponin T < 0.010 NT-Pro-B Natriuret Pep 12/19/17 12/19/17 12/19/17 11:44 11:50 11:50 WBC RBC Hgb Hct MCV MCH MCHC RDW Plt Count Lymph % (Auto) [place] % (Auto) Eos % (Auto) Baso % (Auto) Lymph # Bradley # Eos # Baso # Seg Neutrophils % Seg Neutrophils # PT 13.2 INR 0.95 APTT 24.6 POC ABG pH POC ABG pCO2 POC ABG pO2 POC ABG HCO3 POC ABG Total CO2 POC ABG O2 Sat POC ABG Base Excess VBG pH Sodium Potassium Chloride Carbon Dioxide Anion Gap BUN Creatinine Estimated GFR BUN/Creatinine Ratio Glucose POC Glucose Lactic Acid 1.70 Calcium CK-MB (CK-2) Troponin T NT-Pro-B Natriuret Pep 556.3 H 12/19/17 12/19/17 12/19/17 11:50 11:50 11:52 WBC RBC Hgb Hct MCV MCH MCHC RDW Plt Count Lymph % (Auto) [place] % (Auto) Eos % (Auto) Baso % (Auto) Lymph # Bradley # Eos # Baso # Seg Neutrophils % Seg Neutrophils # PT INR APTT POC ABG pH 7.492 H POC ABG pCO2 43.1 POC ABG pO2 32 L POC ABG HCO3 33.0 POC ABG Total CO2 34 POC ABG O2 Sat 66 POC ABG Base Excess 10 VBG pH 7.458 H Sodium Potassium Chloride Carbon Dioxide Anion Gap BUN Creatinine Estimated GFR BUN/Creatinine Ratio Glucose POC Glucose Lactic Acid Calcium CK-MB (CK-2) 8.7 H Troponin T NT-Pro-B Natriuret Pep - EKG Data -: EKG Interpreted by Ct EKG shows normal: sinus rhythm, axis, intervals, QRS complexes, ST-T waves Rate: normal - EKG Data Interpretation: no acute changes Critical Care Time: Yes Critical care time in (mins) excluding proc time.: 55 Critical care attestation.: If time is entered above; I have spent that time in minutes in the direct care of this critically ill patient, excluding procedure time. ED Disposition Clinical Impression: Volume depletion, Hypokalemia, Gastroparesis, Hyponatremia, Metabolic acidosis , increased anion gap Diabetes mellitus with hyperglycemia Qualifiers: Diabetes mellitus type: other specified (including [place]) Diabetes mellitus manager long term care insulin use: with manager long term care use Qualified Code(s): E13.65 - Other specified diabetes mellitus with hyperglycemia; Z79.4 - long term (current) use of insulin Disposition: DC-09 OP ADMIT IP TO THIS HOSP Is pt being admited?: Yes Does the pt Need Aspirin: No Condition: Stable Instructions: Diabetes Mellitus Type 2 in Adults (ED) Referrals: PRIMARY CARE, [Primary Care Provider] - 3-5 Days Time of Disposition: 12:39
[2017-12-19 12:28] LABS: Creatine Kinase MB 8.7 ng/mL (0.0-4.0)
[2017-12-19 12:31] LABS: Alanine Aminotransferase 13 units/L (7-56); Albumin 4.8 g/dL (3.9-5); Lipase 36 units/L (13-60)
[2017-12-19 12:38] LABS: Bilirubin,Direct < 0.2 mg/dL (0-0.2)
[2017-12-19] MEDS ORDERED: PEPCID IV ONE (12:38)
--- NOTE | 2017-12-19 13:02 | Consultation ---
Medications and Allergies Allergies Allergy/AdvReac Type Severity Reaction Status Date / Time No Known Allergies Allergy Verified 02/19/16 08:35 Home Medications Medication Instructions Recorded Confirmed Last Taken Type Insulin Glargine [Lantus VIAL] 20 unit SUB-Q QHS 02/19/16 07/22/17 02/16/16 20: 00 History Ondansetron [Zofran ODT TAB] 8 mg PO Q8HR #20 tab.rapdis 02/19/16 07/22/17 Unknown Rx Potassium Chloride 10 meq PO QDAY 02/19/16 07/22/17 02/16/16 09:00 History Promethazine [Phenergan SUPPOS] 25 mg ND Q6HR PRN #10 supp.rect 02/19/16 Unknown Rx Promethazine [Phenergan TAB] 25 mg PO Q6HR PRN 02/19/16 07/22/17 02/17/16 10:00 History Ferrous Sulfate [Iron] 325 mg PO TID #30 tablet 07/23/17 Unknown Rx Lisinopril [Zestril TAB] 10 mg PO QDAY #30 tablet 07/23/17 Unknown Rx Omeprazole 20 mg PO DAILY #30 capsule. 07/23/17 Unknown Rx Ondansetron [Zofran Odt] 4 mg PO Q8HR PRN #14 tab.rapdis 08/29/17 Unknown Rx Active Meds: Active Medications Sodium Chloride (Nacl 0.9% 1000 Ml) 1,000 mls @ 999 mls/hr IV BOLUS ONE Stop: 12/19/17 13:30 Last Admin: 12/19/17 12:36 Dose: 999 mls/hr Potassium Chloride (Kcl 10meq/100ml) 10 meq in 100 mls @ 100 mls/hr IV Q1H HUI Stop: 12/19/17 16:59 Exam - Constitutional Vitals: Temp Pulse Resp BP Pulse Ox 98.1 F 117 H 15 117/97 100 12/19/17 12:01 12/19/17 12:01 12/19/17 12:02 12/19/17 12:01 12/19/17 12:02 Results - Labs CBC & Chem 7: 12/19/17 09:48 12/19/17 09:48 Labs: Abnormal lab results 12/19/17 12/19/17 12/19/17 Range/Units 09:48 09:48 10:02 RBC 5.68 H (3.65-5.03) M/mm3 MCV 68 L (79-97) fl MCH 22 L (28-32) pg RDW 17.5 H (13.2-15.2) % [place] % (Auto) 13.9 H (0.0-7.3) % [place] # 1.3 H (0.0-0.8) K/mm3 POC ABG pH (7.35-7.45) POC ABG pO2 (80-105) VBG pH (7.320-7.420) Sodium 120 L (137-145) mmol/L Potassium 2.7 L* (3.6-5.0) mmol/L Chloride 67.8 L (98-107) mmol/L Glucose 403 H (65-100) mg/dL POC Glucose 337 H (70-105) Magnesium (1.7-2.3) mg/dL CK-MB (CK-2) (0.0-4.0) ng/mL CK-MB (CK-2) Rel Index (0-4) NT-Pro-B Natriuret Pep (0-450) pg/mL Total Protein (6.3-8.2) g/dL 12/19/17 12/19/17 12/19/17 Range/Units 11:50 11:50 11:50 RBC (3.65-5.03) M/mm3 MCV (79-97) fl MCH (28-32) pg RDW (13.2-15.2) % [place] % (Auto) (0.0-7.3) % [place] # (0.0-0.8) K/mm3 POC ABG pH (7.35-7.45) POC ABG pO2 (80-105) VBG pH 7.458 H (7.320-7.420) Sodium (137-145) mmol/L Potassium (3.6-5.0) mmol/L Chloride (98-107) mmol/L Glucose (65-100) mg/dL POC Glucose (70-105) Magnesium 2.40 H (1.7-2.3) mg/dL CK-MB (CK-2) 8.7 H (0.0-4.0) ng/mL CK-MB (CK-2) Rel Index 8.6 H (0-4) NT-Pro-B Natriuret Pep 556.3 H (0-450) pg/mL Total Protein 8.4 H (6.3-8.2) g/dL 12/19/17 Range/Units 11:52 RBC (3.65-5.03) M/mm3 MCV (79-97) fl MCH (28-32) pg RDW (13.2-15.2) % [place] % (Auto) (0.0-7.3) % [place] # (0.0-0.8) K/mm3 POC ABG pH 7.492 H (7.35-7.45) POC ABG pO2 32 L (80-105) VBG pH (7.320-7.420) Sodium (137-145) mmol/L Potassium (3.6-5.0) mmol/L Chloride (98-107) mmol/L Glucose (65-100) mg/dL POC Glucose (70-105) Magnesium (1.7-2.3) mg/dL CK-MB (CK-2) (0.0-4.0) ng/mL CK-MB (CK-2) Rel Index (0-4) NT-Pro-B Natriuret Pep (0-450) pg/mL Total Protein (6.3-8.2) g/dL
[2017-12-19] MEDS ORDERED: ATIVAN ONE (13:04)
[2017-12-19] MEDS ORDERED: KEPPRA 1,000 MG/NS 0.75% 100ML 0 MG/0 ML BAG IV ONE (13:05)
[2017-12-19] MEDS: KCL 10MEQ/100ML 10 MEQ/100 ML BAG IV SCH ×4 (13:33→16:30)
[2017-12-19 13:41] LABS: Bacteria,Urine 2+ /HPF (Negative); Bilirubin,Urine NEG (Negative); Blood,Urine MOD (Negative); Color,Urine Yellow (Yellow); HCG Qualitative,Urine Negative (Negative); Mucus,Urine FEW /HPF; Urobilinogen,Urine < 2.0 mg/dL (<2.0)
--- NOTE | 2017-12-19 14:16 | XRay Report ---
AP CHEST: HISTORY: Hypertension AP view of the chest demonstrates a normal mediastinal and cardiac contour with clear lungs and normal bony and soft tissue structures. IMPRESSION: Unremarkable AP chest.
[2017-12-19] MEDS ORDERED: REGLAN IV ONE (14:29)
[2017-12-19 17:02] LABS: BUN/Creatinine Ratio 18; Blood Urea Nitrogen 14 mg/dL (7-17); Calcium 8.9 mg/dL (8.4-10.2); Hemolysis Index 5
[2017-12-19] MEDS ORDERED: MAGNESIUM SULFATE 1 GM in WATER FOR INJ (PF) 23 ML IV ONE (17:23)
[2017-12-19] MEDS: K-DUR PO ONE ×2 (17:51→18:09)
[2017-12-19 18:52] VITALS: BP 126/88
[2017-12-20] MEDS ORDERED: ZESTRIL PO SCH (10:00)
== END 2017-12-19 19:30 | disposition admitted as inpatient to this hospital (09) ==
LOC: ED 09:14
DX: E13.65 Other specified diabetes mellitus with hyperglycemia (principal); E87.6 Hypokalemia; E86.9 Volume depletion, unspecified; E87.1 Hypo-osmolality and hyponatremia; E87.2 Acidosis; I10 Essential (primary) hypertension; Z79.4 Long term (current) use of insulin; Z79.899 Other long term (current) drug therapy
CPT/HCPCS: 36415; 71045; 80048; 80074; 81001; 81025; 82140; 82550; 82553; 82803; 82805; 82962; 83690; 83735; 83880; 84100; 84484; 85025; 85610; 85730; 87040; 87086; 93005; 93010; 96361; 96365; 96375; 99291; J2405; J2765; J3480; J7030; J1953; J2060

== ENCOUNTER 2018-07-08 00:50 | Emergency (ER) | payer MEDICAID, OTHER ==
[2018-07-08 01:46] LABS: Basophils % (Auto) 0.3 % (0.0-1.8); Lymphocytes # (Auto) 1.3 K/mm3 (1.2-5.4); Lymphocytes % (Auto) 12.9 % (13.4-35.0); Mean Corpuscular HGB Conc 31 % (30-34); Monocytes # (Auto) 0.8 K/mm3 (0.0-0.8); Monocytes % (Auto) 7.4 % (0.0-7.3); Platelet Count 473 K/mm3 (140-440); Red Blood Count 5.64 M/mm3 (3.65-5.03)
[2018-07-08 01:52] LABS: Hematocrit 37.7 % (30.3-42.9); Hemoglobin 11.6 gm/dl (10.1-14.3); Mean Corpuscular Volume 67 fl (79-97); Red Cell Distribution Width 20.7 % (13.2-15.2)
[2018-07-08 02:07] LABS: BUN/Creatinine Ratio 21; Blood Urea Nitrogen 25 mg/dL (7-17); Calcium 9.7 mg/dL (8.4-10.2); Hemolysis Index 2
[2018-07-08] MEDS ORDERED: NACL 0.9% 1000 ML 1,000 ML IV ONE ×4 (02:54→05:05)
[2018-07-08] MEDS ORDERED: PEPCID IV ONE (02:55)
[2018-07-08] MEDS ORDERED: ZOFRAN IV ONE ×2 (02:55→05:05)
[2018-07-08] MEDS ORDERED: HumuLIN R IV ONE ×2 (02:55→04:13)
--- NOTE | 2018-07-08 04:36 | Ultrasound Report ---
PROCEDURE: US OB <= 14 WEEKS FETUS TECHNIQUE: Transabdominal and endovaginal pelvic ultrasound HISTORY: preg with abd pain COMPARISONS: No priors FINDINGS: The uterus measures approximately 8 cm longitudinally. The endometrium is thickened measuring approximately 1.9 cm. No intrauterine gestational sac is visualized. The right ovary is normal in contour and echotexture. Left ovary is somewhat poorly defined. No evidence of adnexal masses or fluid in the pelvic cul-de-sac. IMPRESSION: Thickened endometrium which may represent decidual reaction. No intrauterine gestational sac is visua lized. Ectopic cannot be excluded but there are no secondary suggestive signs. Correlation with quantitative beta hCG and ultrasound follow-up recommended as clinically indicated.. This document is electronically signed by Dre Lambert MD., July 08 2018 04:33:53 AM ET
--- NOTE | 2018-07-08 05:09 | Emergency Department Report ---
ED General Adult HPI - General Chief complaint: Chest Pain Stated complaint: CHEST PAIN,WEAKNESS,VOMITING Time Seen by Provider: 07/08/18 02:56 Source: patient Mode of arrival: Ambulatory Limitations: No Limitations - History of Present Illness Initial comments: Patient is a 38-year-old [place]ag[place] female who is presenting with nausea vomiting for the past 3 days. Patient states she has some burning chest discomfort especially when she vomits as well. Patient denies any syncope or presyncope fevers or chills or diarrhea at this time. Patient states she doesn't think she is eating anything that was spoiled. Patient's past history of hypertension d iabetes. Patient is in some dependent diabetic and has been taking her insulin. Severity scale (0 -10): 7 - Related Data Previous Rx's Medication Instructions Recorded Last Taken Type Lisinopril [Zestril TAB] 10 mg PO QDAY #30 tablet 07/23/17 12/18/17 Rx Ondansetron [Zofran Odt] 4 mg PO Q8HR #10 tab.rapdis 07/08/18 Unknown Rx Allergies Allergy/AdvReac Type Severity Reaction Status Date / Time No Known Allergies Allergy Verified 02/19/16 08:35 ED Review of Systems ROS: Stated complaint: CHEST PAIN,WEAKNESS,VOMITING Other details as noted in HPI Comment: All other systems reviewed and negative ED Past Medical Hx - Past Medical History Previous Medical History?: Yes Hx Hypertension: Yes Hx Diabetes: Yes Additional medical history: Gastroparesis, insulin-dependent diabetes - Surgical History Past Surgical History?: Yes Additional Surgical History: x 1 - Social History Smoking Status: Current Every Day Smoker Substance Use Type: Alcohol, Marijuana - Medications Home Medications: Home Medications Medication Instructions Recorded Confirmed Last Taken Type Lisinopril [Zestril TAB] 10 mg PO QDAY #30 tablet 07/23/17 12/19/17 12/18/17 Rx Ondansetron [Zofran Odt] 4 mg PO Q8HR #10 tab.rapdis 07/08/18 Unknown Rx ED Physical Exam - General Limitations: No Limitations General appearance: alert, in no apparent distress - Head Head exam: Present: atraumatic, normocephalic - Eye Eye exam: Present: normal appearance - ENT ENT exam: Present: mucous membranes moist - Neck Neck exam: Present: normal inspection - Respiratory Respiratory exam: Present: normal lung sounds bilaterally. Absent: respiratory distress, wheezes, rales, rhonchi - Cardiovascular Cardiovascular Exam: Present: regular rate, normal rhythm. Absent: systolic murmur, diastolic murmur, rubs, gallop - GI/Abdominal GI/Abdominal exam: Present: soft, tenderness (epigastric discomfort), normal bowel sounds. Absent: distended, guarding, rebound, rigid - Extremities Exam Extremities exam: Present: normal inspection - Back Exam Back exam: Present: normal inspection - Neurological Exam Neurological exam: Present: alert, oriented X3 - Psychiatric Psychiatric exam: Present: normal affect, normal mood - Skin Skin exam: Present: warm, dry, intact, normal color. Absent: rash ED Course Vital Signs 07/08/18 07/08/18 07/08/18 00:54 02:58 03:08 Temperature 97.9 F Pulse Rate 129 H Respiratory 18 20 Rate Blood Pressure 167/109 O2 Sat by Pulse 99 98 99 Oximetry 07/08/18 07/08/18 07/08/18 03:15 03:30 03:45 Temperature Pulse Rate 118 H 118 H 124 H Respiratory 14 13 12 Rate Blood Pressure 139/115 151/106 148/107 O2 Sat by Pulse 96 97 Oximetry ED Medical Decision Making - Lab Data Result diagrams: 07/08/18 01:05 07/08/18 01:05 Lab Results 07/08/18 07/08/18 07/08/18 Range/Units 01:05 01:05 01:05 WBC 10.2 (4.5-11.0) K/mm3 RBC 5.64 H (3.65-5.03) M/mm3 Hgb 11.6 (10.1-14.3) gm/dl Hct 37.7 (30.3-42.9) % MCV 67 L (79-97) fl MCH 21 L (28-32) pg MCHC 31 (30-34) % RDW 20.7 H (13.2-15.2) % Plt Count 473 H (140-440) K/mm3 Lymph % (Auto) 12.9 L (13.4-35.0) % [place] % (Auto) 7.4 H (0.0-7.3) % Eos % (Auto) 0.0 (0.0-4.3) % Baso % (Auto) 0.3 (0.0-1.8) % Lymph # 1.3 (1.2-5.4) K/mm3 [place] # 0.8 (0.0-0.8) K/mm3 Eos # 0.0 (0.0-0.4) K/mm3 Baso # 0.0 (0.0-0.1) K/mm3 Seg Neutrophils % 79.4 H (40.0-70.0) % Seg Neutrophils # 8.1 H (1.8-7.7) K/mm3 POC ABG pH (7.35-7.45) POC ABG pO2 (80-105) POC ABG HCO3 (22-26 mml/L) POC ABG Total CO2 (23-27mmol/L) POC ABG O2 Sat POC ABG Base Excess ((-2) - (+3)mmol/L) FiO2 % Sodium 122 L (137-145) mmol/L Potassium 3.7 (3.6-5.0) mmol/L Chloride 76.7 L (98-107) mmol/L Carbon Dioxide 18 L (22-30) mmol/L Anion Gap 31 mmol/L BUN 25 H (7-17) mg/dL Creatinine 1.2 (0.7-1.2) mg/dL Estimated GFR > 60 ml/min BUN/Creatinine Ratio 21 % Glucose 609 H* (65-100) mg/dL Calcium 9.7 (8.4-10.2) mg/dL Troponin T < 0.010 (0.00-0.029) ng/mL HCG, Qual Positive (Negative) 07/08/18 Range/Units 03:38 WBC (4.5-11.0) K/mm3 RBC (3.65-5.03) M/mm3 Hgb (10.1-14.3) gm/dl Hct (30.3-42.9) % MCV (79-97) fl MCH (28-32) pg MCHC (30-34) % RDW (13.2-15.2) % Plt Count (140-440) K/mm3 Lymph % (Auto) (13.4-35.0) % [place] % (Auto) (0.0-7.3) % Eos % (Auto) (0.0-4.3) % Baso % (Auto) (0.0-1.8) % Lymph # (1.2-5.4) K/mm3 [place] # (0.0-0.8) K/mm3 Eos # (0.0-0.4) K/mm3 Baso # (0.0-0.1) K/mm3 Seg Neutrophils % (40.0-70.0) % Seg Neutrophils # (1.8-7.7) K/mm3 POC ABG pH 7.445 (7.35-7.45) POC ABG pO2 108 H (80-105) POC ABG HCO3 19.4 (22-26 mml/L) POC ABG Total CO2 20 (23-27mmol/L) POC ABG O2 Sat 99 POC ABG Base Excess -5 ((-2) - (+3)mmol/L) FiO2 21 % Sodium (137-145) mmol/L Potassium (3.6-5.0) mmol/L Chloride (98-107) mmol/L Carbon Dioxide (22-30) mmol/L Anion Gap mmol/L BUN (7-17) mg/dL Creatinine (0.7-1.2) mg/dL Estimated GFR ml/min BUN/Creatinine Ratio % Glucose (65-100) mg/dL Calcium (8.4-10.2) mg/dL Troponin T (0.00-0.029) ng/mL HCG, Qual (Negative) Corrected sodium is 127.1 - EKG Data -: EKG Interpreted by Oh EKG shows normal: sinus rhythm, axis, intervals, QRS complexes, ST-T waves Rate: tachycardia - EKG Data Interpretation: other (sinus tachycardia. Time of interpretation is 1:02 AM) - Medical Decision Making Patient blood glucose is 609. Patient's with a gap of 31 however her pH is within normal limits. Serum bicarbonate 18. Patient likely is just very dehydrated. Patient not in DKA at this time. Patient was given 3 L of normal saline and insulin to help correct the hyperglycemia and fluid deficits. Patient's nausea is improving. Critical care attestation.: If time is entered above; I have spent that time in minutes in the direct care of this critically ill patient, excluding procedure time. ED Disposition Clinical Impression: Volume depletion, Hyponatremia, Hyperglycemia, Hyperemesis gravidarum Qualifiers: Weeks of gestation: less than 8 weeks Qualified Code(s): Z3A.01 - Less than 8 weeks gestation of Disposition: DC-01 TO HOME OR SELFCARE Is pt being admited?: No Does the pt Need Aspirin: No Condition: Stable Instructions: Hyperemesis Gravidarum (ED), Dehydration (ED) Referrals: JAZMYN THOMAS MD [Staff Physician] - 3-5 Days Time of Disposition: 06:30
[2018-07-08 06:03] VITALS: BP 166/108
== END 2018-07-08 06:38 | disposition home or self-care (01) ==
LOC: ED 00:50
DX: O21.0 Mild hyperemesis gravidarum (principal); O26.891 Other specified pregnancy related conditions, first trimester; R07.89 Other chest pain; E87.1 Hypo-osmolality and hyponatremia; O24.419 Gestational diabetes mellitus in pregnancy, unspecified control; O16.1 Unspecified maternal hypertension, first trimester; O99.331 Smoking (tobacco) complicating pregnancy, first trimester; F17.200 Nicotine dependence, unspecified, uncomplicated; Z3A.01 Less than 8 weeks gestation of pregnancy
CPT/HCPCS: 36415; 76801; 76817; 80048; 82803; 82962; 84484; 84702; 84703; 85025; 93005; 93010; 96361; 96374; 96375; 96376; 99284; J2405; J7030; J1815